=== PATIENT | female | born 1935 ===

== ENCOUNTER 2019-04-22 16:58 | Emergency (ER) | payer OTHER ==
[~2019-04-22] VITALS: Ht 157.5 cm; Wt 67.1 kg
[2019-04-22] MEDS ORDERED: COZAAR50 MG PO (17:20)
[2019-04-22] MEDS ORDERED: ZOCOR20 MG PO (17:20)
[2019-04-22] MEDS ORDERED: NORVASC2.5 MG PO (17:21)
[2019-04-22] MEDS ORDERED: SYNTHROID112 MCG PO (17:21)
[2019-04-22] MEDS ORDERED: ENABLEX7.5 MG PO (17:22)
[2019-04-22] MEDS ORDERED: ELAVIL PO (17:22)
[2019-04-22] MEDS ORDERED: EXELON1 EAC2 TD (17:23)
[2019-04-22] MEDS ORDERED: PLAVIX75 MG PO (17:23)
[2019-04-22] MEDS ORDERED: OMEGA 3 1,0001 EACH PO (17:23)
== END 2019-04-22 18:21 | disposition home or self-care (01) ==
LOC: ER 16:58
DX: K64.8 Other hemorrhoids (principal)